=== PATIENT | female | born 1950 | race Caucasian/White ===

== ENCOUNTER 2023-09-07 11:57 | Emergency (ER) | payer OTHER ==
[~2023-09-07] VITALS: Ht 165.1 cm; Wt 68.0 kg
[2023-09-07 12:17] VITALS: BP_SYST 131; PULSE 116; RESP 18; TEMP 98.5; O2SAT 98
[2023-09-07] MEDS ORDERED: HYDROcodone/ACETAMIN 10-325 MG TAB PO ONE (14:30)
[2023-09-07] MEDS ORDERED: IBUPROFEN 800 MG TABLET PO ONE (14:30)
[2023-09-07] MEDS ORDERED: IBUP-1969 PO (16:36)
[2023-09-07] MEDS ORDERED: TRAM50TA2 PO (16:37)
[2023-09-07 16:44] VITALS: BP_SYST 128; PULSE 98; RESP 19; TEMP 98.5; O2SAT 98
== END 2023-09-07 19:42 | disposition home or self-care (01) ==
LOC: SED 11:57
DX: S22.41XA Multiple fractures of ribs, right side, initial encounter for closed fracture (principal); Z79.899 Other long term (current) drug therapy; X58.XXXA Exposure to other specified factors, initial encounter; Y93.89 Activity, other specified; Y92.89 Other specified places as the place of occurrence of the external cause; Y99.8 Other external cause status
CPT/HCPCS: 71250-TC; 76376; 99284